=== PATIENT | female | born 1985 | race Caucasian/White ===

== ENCOUNTER 2021-08-28 12:36 | Emergency (ER) | payer OTHER ==
[2021-08-28] MEDS ORDERED: NORFLEX 100 MG100 MG PO (14:55)
[2021-08-28] MEDS ORDERED: IBUPROFEN600 MG PO (14:55)
== END 2021-08-28 15:02 | disposition home or self-care (01) ==
LOC: ER1 12:36
DX: M54.2 Cervicalgia (principal); M54.6 Pain in thoracic spine; V49.40XA Driver injured in collision with unspecified motor vehicles in traffic accident, initial encounter; Y92.410 Unspecified street and highway as the place of occurrence of the external cause
CPT/HCPCS: 72070; 72125; 99284

== ENCOUNTER → 2021-09-27 | Outpatient (CLI) | payer OTHER ==
[~2021-09-27] MED LIST: IBUPROFEN600 MG PO; NORFLEX 100 MG100 MG PO
== END ==
LOC: KOH-I 12:44
DX: M54.50 Low back pain, unspecified (principal); M47.817 Spondylosis without myelopathy or radiculopathy, lumbosacral region
CPT/HCPCS: 72100